=== PATIENT | female | born 2000 | race Caucasian/White ===

== ENCOUNTER 2019-04-20 17:14 | Emergency (ER) | payer OTHER ==
[2019-04-20 17:55] LABS: URINE APPEARANCE CLOUDY; URINE BILIRUBIN NEGATIVE (NEGATIVE); URINE BLOOD MODERATE (NEGATIVE); URINE COLOR YELLOW; URINE GLUCOSE (UA) NEGATIVE (NEGATIVE); URINE KETONE NEGATIVE (NEGATIVE); URINE LEUKOCYTE ESTERASE LARGE (NEGATIVE); URINE NITRITE POSITIVE (NEGATIVE); URINE UROBILINOGEN 0.2 E.U./dL (0.20 - 1.00)
--- NOTE | 2019-04-20 18:02 | Emergency Department Record ---
History of Present Illness - General Chief Complaint: Back Pain/Injury Stated Complaint: R BACK PAIN Time Seen by Provider: 04/20/19 17:43 Source: Patient Mode of Arrival: Ambulatory Limitations: No limitations - History of Present Illness Initial Comments: Pt relates pain in lower back and concern for UTI. Pt without fever. + Frequency with out dysuria. Onset/Timin -: Week(s) Radiation: None Severity: Moderate Severity scale (1-10): 6 Quality: Aching Consistency: Constant Improves With: None Worsens With: None Context: Unknown Treatments Prior to Arrival: Other medications Treatment Prior to Arrival Comment:: flexeril - Related Data Home Medications Medication Instructions Recorded Confirmed Last Taken Escitalopram Oxalate [Lexapro] 20 mg PO DAILY 04/20/19 04/20/19 04/20/19 Lamotrigine 25 mg PO ASDIR 04/20/19 04/20/19 04/20/19 Sumatriptan Succinate 100 mg PO ASDIR 04/20/19 04/20/19 Unknown Previous Rx's Medication Instructions Recorded Nitrofurantoin [place] [Macrobid] 100 mg PO BID 5 Days #10 capsule 04/20/19 Allergies Allergy/AdvReac Type Severity Reaction Status Date / Time No Known Drug Allergies Allergy Verified 04/20/19 17:26 Travel Screening - Travel/Exposure Within Last 30 Days Have you traveled within the last 30 days?: No - Travel/Exposure Within Last Year Have you traveled outside the [place] in the last year?: No - Additonal Travel Details Have you been exposed to anyone with a communicable illness?: No - Travel Symptoms Symptom Screening: None Review of Systems Constitutional: Denies: Chills, Fever, Malaise Eyes: Denies: Eye pain ENT: Denies: Throat pain Respiratory: Denies: Cough Cardiovascular: Denies: Arrhythmia Endocrine: Denies: Fatigue Gastrointestinal: Denies: Abdominal pain, Diarrhea, Nausea, Vomiting Musculoskeletal: Reports: As per HPI, Back pain. Denies: Gout Skin: Denies: Bruising Neurological: Denies: Tingling Psychiatric: Denies: Anxiety Past Medical History - SOCIAL HISTORY Smoking Status: Never smoker Alcohol Use: None Drug Use: None - RESPIRATORY Hx Respiratory Disorders: No - CARDIOVASCULAR Hx Cardio Disorders: No - NEURO Hx Neuro Disorders: Yes Hx Headaches: Yes - GI Hx GI Disorders: No - Hx Genitourinary Disorders: No - ENDOCRINE Hx Endocrine Disorders: No - MUSCULOSKELETAL Hx Musculoskeletal Disorders: Yes - PSYCH Hx Psych Problems: Yes Hx Anxiety: Yes Hx Depression: Yes - HEMATOLOGY/ONCOLOGY Hx Hematology/Oncology Disorders: No Family Medical History Any Significant Family History?: No Physical Exam - General General Appearance: Alert, Oriented x3, Cooperative, No acute distress - Head Head exam: Normal inspection - Eye Eye exam: PERRL, EOMI - ENT ENT exam: Mucous membranes moist Ear exam: Normal external inspection Nasal Exam: Normal inspection - Neck Neck exam: Normal inspection - Respiratory Respiratory exam: Normal lung sounds bilaterally. negative: Respiratory distress - Cardiovascular Cardiovascular Exam: Regular rate, Normal rhythm - GI/Abdominal GI/Abdominal exam: Soft, Normal bowel sounds. negative: Tenderness - Extremities Extremities exam: Normal inspection - Back Back exam: Reports: Normal inspection. Denies: CVA tenderness (R), CVA tenderness (L) - Neurological Neurological exam: Alert, Normal gait, Oriented X3 - Psychiatric Psychiatric exam: Normal affect, Normal mood - Skin Skin exam: Normal color. negative: Petechiae Course Vital Signs 04/20/19 17:29 Temperature 100.3 F H Pulse Rate 110 H Respiratory 20 Rate Blood Pressure 140/81 Pulse Ox 97 Medical Decision Making - Lab Data Lab Results 04/20/19 04/20/19 Range/Units 17:47 17:47 Urine Color Yellow Urine Appearance Cloudy Urine pH 8.0 (5.0-8.0) Ur Specific [place] 1.015 (1.002-1.030) Urine Protein 100 mg/dl H (NEGATIVE) Urine Glucose (UA) Negative (NEGATIVE) Urine Ketones Negative (NEGATIVE) Urine Blood Moderate (NEGATIVE) Urine Nitrite Positive H (NEGATIVE) Urine Bilirubin Negative (NEGATIVE) Urine Urobilinogen 0.2 (0.20 - 1.00) E.U./dL Ur Leukocyte Esterase Large H (NEGATIVE) Urine HCG, Qual Negative (NEGATIVE) Disposition Disposition: Discharge Clinical Impression: UTI (urinary tract infection) Disposition: Home, Self-Care Condition: (1) Good Instructions: Urinary Tract Infection in Women (ED) Prescriptions: Nitrofurantoin [place] [Macrobid] 100 mg PO BID 5 Days #10 capsule Time of Disposition: 18:01 Quality - Quality Measures Quality Measures: N/A - Blood Pressure Screening Does Patient Have Any of the Following: No Blood Pressure Classification: Pre-Hypertensive BP Reading Systolic Measurement: 140 Diastolic Measurement: 81 Screening for High Blood Pressure: < Pre-Hypertensive BP, F/U Documented > [[id number]] Pre-Hypertensive Follow-up Interventions: Follow-up with rescreen every year.
[2019-04-20 18:03] LABS: URINE BACTERIA 4+; URINE EPITHELIAL CELLS 0 - 2 (FEW)
== END 2019-04-20 18:10 | disposition home or self-care (01) ==
LOC: ER 17:14
DX: N39.0 Urinary tract infection, site not specified (principal); M54.5 Low back pain
CPT/HCPCS: 81001; 81025; 99283